=== PATIENT | female | born 1935 | race Caucasian/White ===

== ENCOUNTER 2019-12-10 19:34 | Emergency (ER) | payer MEDICARE, OTHER ==
[~2019-12-10] VITALS: Ht 160 cm; Wt 95.2 kg
[2019-12-10] MEDS ORDERED: Hydrochlorothia25 MG PO (19:51)
[2019-12-10] MEDS ORDERED: TIOT18 INH (19:51)
[2019-12-10] MEDS ORDERED: LOSA50 PO (19:51)
[2019-12-10] MEDS ORDERED: ALBU90OI INH (19:52)
[2019-12-10] MEDS ORDERED: OMEP20ER PO (19:52)
[2019-12-10 20:58] LABS: PCO2 Arterial 39.9 mmHg (35-45); PO2 Arterial 61.4 mmHg (80-100); pH Blood Arterial 7.43 (7.35-7.45)
[2019-12-10 21:47] LABS: BASOPHILS ABSOLUTE AUTO 0.01 K/mm3 (0.00-0.23); BASOPHILS PERCENT AUTO 0 % (0-2); EOSINOPHILS ABSOLUTE AUTO 0.01 K/mm3 (0.00-0.68); EOSINOPHILS PERCENT AUTO 0 % (0-6); Hematocrit 37.9 % (33.0-51.0); Hemoglobin 12.2 g/dL (11.5-16.0); IMMATURE GRAN ABSOLUTE AUTO 0.02 K/mm3 (0.00-0.10); IMMATURE GRAN PERCENT AUTO 1 % (0-1); LYMPHOCYTES ABSOLUTE AUTO 0.85 K/mm3 (0.84-5.20); LYMPHOCYTES PERCENT AUTO 26 % (21-46); MONOCYTES ABSOLUTE AUTO 0.23 K/mm3 (0.16-1.47); MONOCYTES PERCENT AUTO 7 % (4-13); Mean Corpuscular HGB 28.6 pg (26.0-34.0); Mean Corpuscular HGB Conc 32.2 g/dL (31.5-36.5); Mean Corpuscular Volume 89 fL (80-100); Mean Platelet Volume 11.9 fL (9.1-12.4); NEUTROPHILS ABSOLUTE AUTO 2.19 K/mm3 (1.96-9.15); NEUTROPHILS PERCENT AUTO 66 % (41-73); Platelet Count 110 K/mm3 (150-400); RDW Coefficient Variation 13.8 % (11.7-14.2); Red Blood Cell Count 4.26 M/mm3 (3.80-5.20); White Blood Cell Count 3.31 K/mm3 (4.00-11.30)
[2019-12-10 22:07] LABS: Influenza A Negative (NEGATIVE); Influenza B Negative (NEGATIVE)
[2019-12-10 22:09] LABS: Albumin/Globulin Ratio 0.8 (0.8-1.8); Bilirubin, Direct 0.2 mg/dL (0.0-0.3); Bilirubin, Indirect 0.2 mg/dL (0.1-0.7); Bilirubin, Total 0.4 mg/dL (0.1-1.0); C-Reactive Protein, High Sens. 93.2 mg/L (0.000-3.000); Calcium, Blood 8.6 mg/dL (8.5-10.1); Potassium, Blood 3.2 mmol/L (3.5-5.5)
== END 2019-12-10 22:27 | disposition home or self-care (01) ==
LOC: ER 19:34
PROVIDERS: Emergency Medicine
DX: U07.1 COVID-19 (principal); J12.89 Other viral pneumonia; J44.9 Chronic obstructive pulmonary disease, unspecified; I10 Essential (primary) hypertension; Z87.891 Personal history of nicotine dependence; Z79.899 Other long term (current) drug therapy
CPT/HCPCS: 36415; 36600; 71046; 80048; 80076; 82728; 82803; 83605; 83615; 84145; 85025; 85379; 86141; 87040; 87804; 93005; 93010; 99284-25

== ENCOUNTER 2021-12-21 13:50 | Inpatient (IN) | payer MEDICARE ==
[~2021-12-21] VITALS: Ht 162.6 cm; Wt 83.9 kg
[~2021-12-21 13:50] MED LIST: ALBU90OI INH; Hydrochlorothia25 MG PO; LOSA50 PO; OMEP20ER PO; TIOT18 INH
[2021-12-21 14:59] LABS: BASOPHILS ABSOLUTE AUTO 0.03 K/mm3 (0.00-0.23); BASOPHILS PERCENT AUTO 1 % (0-2); EOSINOPHILS ABSOLUTE AUTO 0.19 K/mm3 (0.00-0.68); EOSINOPHILS PERCENT AUTO 3 % (0-6); Hematocrit 39.7 % (33.0-51.0); Hemoglobin 13.7 g/dL (11.5-16.0); IMMATURE GRAN ABSOLUTE AUTO 0.01 K/mm3 (0.00-0.10); IMMATURE GRAN PERCENT AUTO 0 % (0-1); LYMPHOCYTES ABSOLUTE AUTO 1.63 K/mm3 (0.84-5.20); LYMPHOCYTES PERCENT AUTO 26 % (21-46); MONOCYTES ABSOLUTE AUTO 0.66 K/mm3 (0.16-1.47); MONOCYTES PERCENT AUTO 10 % (4-13); Mean Corpuscular HGB 31.6 pg (26.0-34.0); Mean Corpuscular HGB Conc 34.5 g/dL (31.5-36.5); Mean Corpuscular Volume 92 fL (80-100); Mean Platelet Volume 11.8 fL (9.1-12.4); NEUTROPHILS ABSOLUTE AUTO 3.88 K/mm3 (1.96-9.15); NEUTROPHILS PERCENT AUTO 61 % (41-73); Platelet Count 193 K/mm3 (150-400); RDW Standard Deviation 43.5 fL (35.1-46.3); Red Blood Cell Count 4.34 M/mm3 (3.80-5.20)
[2021-12-21 15:14] LABS: Albumin, Blood 3.5 g/dL (3.4-5.0); Bilirubin, Total 0.4 mg/dL (0.1-1.0); Bun/Creatinine Ratio 24.9 (12.0-20.0); Calcium, Blood 9.3 mg/dL (8.5-10.1); Creatinine, Blood 0.84 mg/dL (0.40-1.00); Globulin, Blood 3.5 g/dL (2.2-4.0); Potassium, Blood 3.4 mmol/L (3.5-5.5)
[2021-12-21 18:40] LABS: CHOL/HDL RATIO 2.4; Cholesterol 165 mg/dL (50-200); HDL Cholesterol 70 mg/dL (>39); Low Density Lipoprotein Chol 73 mg/dL (0-110); Triglycerides 112 mg/dL (30-160); Very Low Density Lipoprot Chol 22 mg/dL (6-32)
--- NOTE | 2021-12-21 20:08 | NUR ---
PT MRI RESULTS AVAILABLE. NOTIFIED.
[2021-12-21] MEDS ORDERED: ASCO500 PO (23:50)
[2021-12-21] MEDS ORDERED: IRON SUPPLEMENT PO (23:51)
[2021-12-21] MEDS ORDERED: TRELEGY ELLIPTA INH (23:53)
[2021-12-21] MEDS ORDERED: OMEGA 3 FISH OIL PO (23:56)
[2021-12-21] MEDS ORDERED: GABA100 PO (23:57)
--- NOTE | 2021-12-22 05:57 | NUR ---
PT WITH NO NOTED NEURO CHANGES. LEFT SIDE REMAINS WEAKER THAN RIGHT. PT HAS LEFT SIDE NEGLECT AND NO LEFT SIDE PERIPHERAL VISION. POOR LEFT SIDE COORDINATION. PT DENIED HEADACHE. PERMISSIVE HYPERTENSION BP 196/87 PRN APRESOLINE PARAMETER NOT MET. PT SLEPT T/O THE NIGHT. JETHRO TO SWALLOW W/O DIFFICULTY.
--- NOTE | 2021-12-22 18:35 | NUR ---
SHIFT SUMMARY: PT A/O X 3, ONE ASSIST WITH GB AND WALKER. PT HAS BEEN VERY PLEASANT AND COOPERATIVE WITH CARE. CONTINENT OF URINE AND BOWEL. BM TODAY. PT HAS LEFT SIDE VISUAL DEFICIT AND HAS TO BE DIRECTED TO TURN HEAD TO SEE LEFT ITEMS ON LEFT SIDE. SHE DOES BUMP INTO ITEMS WITH WALKER IF SHE IS NOT DIRECTED. PT DID AMBULATE WITHOUT DIFFICULTY WITH WALKER OTHERWISE. PT DID DEVELOP A MILD CASTELLANO POINTING TO HER TEMPORAL AREA AND TYLENOL WAS GIVEN FOR HER PAIN WHICH WAS EFFECTIVE IN TREATING HER PAIN. PT VISITING WITH FAMILY AND END OF SHIFT IN HER ROOM. SHE IS ACTIVELY TALKING AND HAS NO COMPLAINTS AT THIS TIME.
--- NOTE | 2021-12-23 06:14 | NUR ---
SHIFT SUMMARY PATIENT ALERT AND ORIENTED X3. MEDICATED PER EMAR FOR PAIN. PATIENT IS CONFUSED, IMPULSIVE, AND STRUGGLES WITH DIRECTIONS, ESPECIALLY WHEN MOVING TO THE LEFT. NO ACUTE ISSUES NOTED OVERNIGHT. BED IN LOWEST POSITION WITH WHEELS LOCKED AND ALARM ON. CALL LIGHT WITHIN REACH. REPORT GIVEN TO ONCOMING RN.
[2021-12-23 08:56] LABS: BASOPHILS ABSOLUTE AUTO 0.04 K/mm3 (0.00-0.23); BASOPHILS PERCENT AUTO 1 % (0-2); EOSINOPHILS PERCENT AUTO 1 % (0-6); Hematocrit 44.5 % (33.0-51.0); Hemoglobin 15.3 g/dL (11.5-16.0); IMMATURE GRAN ABSOLUTE AUTO 0.01 K/mm3 (0.00-0.10); IMMATURE GRAN PERCENT AUTO 0 % (0-1); LYMPHOCYTES ABSOLUTE AUTO 1.02 K/mm3 (0.84-5.20); LYMPHOCYTES PERCENT AUTO 14 % (21-46); MONOCYTES ABSOLUTE AUTO 0.63 K/mm3 (0.16-1.47); MONOCYTES PERCENT AUTO 9 % (4-13); Mean Corpuscular HGB 31.6 pg (26.0-34.0); Mean Corpuscular HGB Conc 34.4 g/dL (31.5-36.5); Mean Corpuscular Volume 92 fL (80-100); Mean Platelet Volume 11.1 fL (9.1-12.4); NEUTROPHILS ABSOLUTE AUTO 5.49 K/mm3 (1.96-9.15); NEUTROPHILS PERCENT AUTO 75 % (41-73); Platelet Count 210 K/mm3 (150-400); RDW Coefficient Variation 12.8 % (11.7-14.2); RDW Standard Deviation 42.9 fL (35.1-46.3); Red Blood Cell Count 4.84 M/mm3 (3.80-5.20); White Blood Cell Count 7.29 K/mm3 (4.00-11.30)
[2021-12-23 09:21] LABS: Albumin, Blood 3.7 g/dL (3.4-5.0); Albumin/Globulin Ratio 0.9 (0.8-1.8); Bilirubin, Total 0.8 mg/dL (0.1-1.0); Bun/Creatinine Ratio 17.1 (12.0-20.0); Calcium, Blood 9.6 mg/dL (8.5-10.1); Creatinine, Blood 0.76 mg/dL (0.40-1.00); Potassium, Blood 3.9 mmol/L (3.5-5.5); Total Protein, Blood 7.7 g/dL (6.4-8.2)
[2021-12-24 05:11] LABS: Bun/Creatinine Ratio 20.3 (12.0-20.0); Calcium, Blood 9.3 mg/dL (8.5-10.1); Creatinine, Blood 0.79 mg/dL (0.40-1.00); Potassium, Blood 3.4 mmol/L (3.5-5.5)
--- NOTE | 2021-12-24 05:26 | NUR ---
PT HAD FAMILY VISITING AT START OF SHIFT. WALKING UP HALLS WITH FAMILY. PT CONTINUES TO NOT SEE WELL OUT OF LEFT EYE AND IS HAVING DIFFICULTIES WITH DIRECTIONS. AT 0140 PT C/O HEADACHE ACROSS FOREHEAD. PT STATES THIS IS NOT THE SAME HER "STROKE HEADACHE". PT DOES NOT USE CALL LIGHT BUT JUMPS OUT OF BED SETTING OFF ALARM AND WALKING WITHOUT WALKER WITH AN UNSTEADY GATE.
[2021-12-24] MEDS ORDERED: Acetaminophen650 M1 PO (11:44)
[2021-12-24] MEDS ORDERED: Amlodipine Bes2.5 MG PO (11:50)
[2021-12-24] MEDS ORDERED: ASPI81CH PO (11:54)
[2021-12-24] MEDS ORDERED: ATORVASTATIN CA80 M1 PO (11:58)
[2021-12-24] MEDS ORDERED: CLOP75 PO (11:59)
[2021-12-24] MEDS ORDERED: PANT20 PO (12:00)
== END 2021-12-24 13:42 | disposition home health service (06) | DRG 66 ==
LOC: ER 13:50 → MEDS 13:51
PROVIDERS: Emergency Medicine; Internal Medicine; ADMIT Internal Medicine
DX: I63.9 Cerebral infarction, unspecified (principal); H53.462 Homonymous bilateral field defects, left side; R29.701 NIHSS score 1; Z66 Do not resuscitate; J44.9 Chronic obstructive pulmonary disease, unspecified; K21.9 Gastro-esophageal reflux disease without esophagitis; I10 Essential (primary) hypertension; Z79.899 Other long term (current) drug therapy; Z79.51 Long term (current) use of inhaled steroids; Z90.49 Acquired absence of other specified parts of digestive tract; Z90.89 Acquired absence of other organs; Z98.890 Other specified postprocedural states; Z87.891 Personal history of nicotine dependence
CPT/HCPCS: 36415; 70450; 70496; 70498; 70551; 80048; 80053; 80061; 83036; 85025; 85651; 85730; 86140; 86141; 93005; 93010; 94640; 94664; 94760; 96372; 96374-59; 96375-59; 97112; 97116-CQ; 97129; 97162; 97166; 97530; 97530-CQ; 97535; 99285-25; A9270; C8929; C9113; G0378; J0780; J1650; J1885; Q3014; Q9957; Q9967

== ENCOUNTER → 2022-08-18 | Outpatient (CLI) | payer BC ==
[~2022-08-18] MED LIST changes: +AMLO5 PO; +ASCO500 PO; +ASPI81CH PO; +ATOR80 PO; +ATORVASTATIN CA80 M1 PO; +Acetaminophen650 M1 PO; +Amlodipine Bes2.5 MG PO; +CLOP75 PO; +ELIQUIS5 M2 PO; +GABA100 PO; +IRON SUPPLEMENT PO; +IRON18 MG PO; +OMEGA 3 FISH OIL PO; +OMEGA-3 FISH O1 EAC5; +PANT20 PO; +TRELEGY ELLIPT1 EACH IH; +TRELEGY ELLIPT1 EACH INH; +TRELEGY ELLIPTA INH
== END | disposition home or self-care (01) ==
LOC: LAB SHORT 11:26 → LAB 11:26
DX: H60.11 Cellulitis of right external ear (principal)
CPT/HCPCS: 87070; 87205

== ENCOUNTER → 2022-08-28 | Outpatient (CLI) | payer BC ==
[2022-08-28 14:38] LABS: BASOPHILS ABSOLUTE AUTO 0.03 K/mm3 (0.00-0.23); BASOPHILS PERCENT AUTO 1 % (0-2); EOSINOPHILS PERCENT AUTO 2 % (0-6); Hematocrit 39.2 % (33.0-51.0); Hemoglobin 13.2 g/dL (11.5-16.0); IMMATURE GRAN ABSOLUTE AUTO 0.02 K/mm3 (0.00-0.10); IMMATURE GRAN PERCENT AUTO 0 % (0-1); LYMPHOCYTES ABSOLUTE AUTO 1.09 K/mm3 (0.84-5.20); LYMPHOCYTES PERCENT AUTO 18 % (21-46); MONOCYTES ABSOLUTE AUTO 0.43 K/mm3 (0.16-1.47); MONOCYTES PERCENT AUTO 7 % (4-13); Mean Corpuscular HGB Conc 33.7 g/dL (31.5-36.5); Mean Corpuscular Volume 92 fL (80-100); Mean Platelet Volume 11.5 fL (9.1-12.4); NEUTROPHILS ABSOLUTE AUTO 4.46 K/mm3 (1.96-9.15); NEUTROPHILS PERCENT AUTO 73 % (41-73); Platelet Count 219 K/mm3 (150-400); RDW Coefficient Variation 13.2 % (11.7-14.2); RDW Standard Deviation 44.3 fL (35.1-46.3); Red Blood Cell Count 4.26 M/mm3 (3.80-5.20); White Blood Cell Count 6.13 K/mm3 (4.00-11.30)
[2022-08-28 15:06] LABS: Albumin, Blood 3.4 g/dL (3.4-5.0); Albumin/Globulin Ratio 0.9 (0.8-1.8); Bilirubin, Total 0.5 mg/dL (0.1-1.0); Bun/Creatinine Ratio 25.1 (12.0-20.0); Calcium, Blood 9.6 mg/dL (8.5-10.1); Creatinine, Blood 0.92 mg/dL (0.40-1.00); Globulin, Blood 3.7 g/dL (2.2-4.0); Potassium, Blood 4.3 mmol/L (3.5-5.5); Total Protein, Blood 7.1 g/dL (6.4-8.2)
== END ==
LOC: LAB SHORT 13:40 → LAB 13:40
PROVIDERS: Physician Assistant
DX: R06.02 Shortness of breath (principal)
CPT/HCPCS: 80053; 83880; 85025

== ENCOUNTER → 2024-02-08 | Outpatient (CLI) | payer OTHER ==
[~2024-02-08] MED LIST changes: +ACET500 PO; +AMLO10 PO; +CEPH500 PO; +ESCI10 PO; +LIDO700A20 TOP
[2024-02-08 09:50] LABS: Source, Urine Clean Catch
[2024-02-08 10:42] LABS: Appearance, Urine Clear (Clear); Bilirubin, Urine Neg (Neg); Blood, Urine 2+ (Neg); Color, Urine Yellow (P-Yellow); Glucose Qualitative, Urine Neg (Neg); Ketones, Urine Neg (Neg); Leukocyte Esterase, Urine 1+ (Neg); Nitrite, Urine Neg (Neg); Protein, Urine Neg (Neg); Urobilinogen, Urine NORM (Normal); pH, Urine 6.5 (5.0-8.0)
[2024-02-08 10:47] LABS: Bacteria Few /hpf; Squamous Epithelial Cells Few /hpf (Few)
[2024-02-08 10:48] LABS: Amorphous Light (0-Heavy); Yeast/Fungi Urine Rare /hpf
== END ==
LOC: LAB 09:49 → LAB SHORT 09:49 → EDSTATUS 10:44
PROVIDERS: Internal Medicine
DX: N39.0 Urinary tract infection, site not specified (principal)
CPT/HCPCS: 81001; 87086

== ENCOUNTER → 2024-02-22 | Outpatient (CLI) | payer OTHER ==
[2024-02-22 10:04] LABS: Source, Urine Clean Catch
[2024-02-22 13:41] LABS: Appearance, Urine Clear (Clear); Bilirubin, Urine Neg (Neg); Blood, Urine 1+ (Neg); Color, Urine Yellow (P-Yellow); Glucose Qualitative, Urine Neg (Neg); Ketones, Urine Neg (Neg); Leukocyte Esterase, Urine 1+ (Neg); Nitrite, Urine Neg (Neg); Protein, Urine 1+ (Neg); Urobilinogen, Urine NORM (Normal); pH, Urine 6.5 (5.0-8.0)
[2024-02-22 14:07] LABS: Bacteria Few /hpf; Squamous Epithelial Cells Few /hpf (Few)
== END | disposition home or self-care (01) ==
LOC: LAB 10:03 → LAB SHORT 10:03 → LAB FUT 02-10 13:40 → EDSTATUS 02-10 13:40
PROVIDERS: Internal Medicine
DX: R82.90 Unspecified abnormal findings in urine (principal)
CPT/HCPCS: 81001; 87086